=== PATIENT | male | born 1995 | race Caucasian/White ===

== ENCOUNTER 2025-02-12 18:59 | Emergency (ER) | payer OTHER ==
[~2025-02-12] VITALS: Ht 162.6 cm; Wt 82.3 kg
[2025-02-12 19:35] VITALS: TEMP 99.4
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
[2025-02-12 20:09] LABS: MEAN PLATELET VOLUME 7.8 FL (7.4-10.4); RED CELL DISTRIBUTION WIDTH 12.9 % (11.5-14.5)
[2025-02-12 20:25] LABS: CREATININE 0.89 MG/DL (0.60-1.10); TOTAL CARBON DIOXIDE 25.1 MMOL/L (24-32); eCRCL 102 ML/MIN; eGFR > 90 ML/MIN
[2025-02-12] MEDS: ondansetron/PF 4mg/2ml inj IV ONE (21:01)
[2025-02-12] MEDS: normal saline 1000ml 1,000 ML IV ONE (21:01)
[2025-02-12 22:14] VITALS: BP 123/74; PULSE 75; RESP 16; O2SAT 95
== END 2025-02-12 22:17 | disposition home or self-care (01) ==
LOC: ER 19:01
DX: E86.0 Dehydration (principal); Z88.5 Allergy status to narcotic agent
CPT/HCPCS: 36415; 80053; 82948; 85025; 96361; 96374; 99283; J2405; J7030